=== PATIENT | male | born 1945 | race Caucasian/White ===

== ENCOUNTER 2021-01-14 08:00 | Outpatient (CLI) | payer OTHER ==
[~2021-01-14 08:00] MED LIST: LEVSIN0.125 MG PO; ULTRACET PO; VYTORIN; ZANTAC300 MG PO; ZOFRAN4 MG PO
== END 2021-01-14 08:30 | disposition home or self-care (01) ==
LOC: PPH VACUNA 08:00
PROVIDERS: ATTEND Emergency Medicine Pediatric Emergency Medicine
DX: Z23 Encounter for immunization (principal)